=== PATIENT | female | born 1955 | race Caucasian/White ===

== ENCOUNTER 2019-07-25 13:30 | Outpatient (RCR) | payer OTHER, SELFPAY ==
--- NOTE | 2019-03-17 08:09 | HP.PTEVAL_ITS ---
Patient's Visit Information KIMBERLY BERNAL is a 63 year old F referred to Physical Therapy by DOUGLAS SIMMONS with a diagnosis of B knee OA, s/p R TKA 03/13. Date of Evaluation: 03/17/19 Physical Therapist: Constantine Molina, DPT, OCS, CSCS - Visit Plan Frequency: 2-3x /Week Duration: 4-6 Weeks Plan: 2-3x/week for 3-4 weeks for R knee ROM, patellar movements and mobs, strength R and L LE and gait training and progression. Pt to have L TKA on 04/10 and needs to be ready for that. - Subjective Findings: R TKA on 03/13/19, L one to be done in mid March. Years of troube with pain and OA. 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 Work s 40 hrs per week but is off until after her 2nd knee is done. Sleep was rough this weekend as she was up every 4 hours. Pain is 6-8/10 much of time posteriorly R knee.. She takes tylenol. she is doing exercises including QS, HS, SLR with husbands help and AP as wella s icing at home. She uses a walker to get around a kayla. She needs help with her compression stockings and pants. Uses bathroom herself with elevated toilet seat. Has a walk in shower that she will use. Hobbies include taking care of her dog and doing puzzles. Dog is staying with relative right now. - Pain R knee Pain Intensity (Out of 10): 6 Pain Intensity Range: 6, 8 - Objective Walks with walker I slow and decent knee flexion R. Trasnfers with UE I and to and fro supine I. R knee AROM -1 to 85 degrees today adn L is 0-115. Patella is stiff on R knee and patient is swollen R LE, - homans, wound dressed appropriately today and is dry and clean. ankles and hip ROM is WNL although hesitant on the right. Stands and marches without AD slow but I, Walks 15 feet without AD hesitantly but with SBA today. SLR with 8 degree lag on R slowly, strength NT at knee, hip R is 4- adn ankle 4+. L 4+ B. - Goals Goal 1:: 0-120 aROM R knee to facilitate steps and functional transfer from floor. Goal Time Frame: 4-6 Weeks Goal 2:: Patient ambulate community without AD Goal Time Frame: 2-4 Weeks Goal 3:: FGA Goal Time Frame: 2-4 Weeks Goal 4:: R knee healthy enough to have L knee replaced mid March. Goal Time Frame: 2-4 Weeks - Rehabilitation Potential Physical Therapy Diagnosis: s/p R TKA 03/13 Rehabilitation Potential: Good - Anticipated Interventions Patient/Client Instruction: Educate patient on: Condition, Plan of Care For the Purpose of:: To decrease pain, To increase ROM, To improve muscle performance and motor function, To increase tolerance to acti vity/condition/position, To improve ability of physical actions for home/community/work/leisure Therapeutic Exercise to Include: Strength training, Flexibilty training, Gait a nd locomotor training, Passive ROM, Active ROM For the Purpose of:: To decrease pain, To increase ROM, To improve muscle performance and motor function, To improve ability of physical actions for home/community/work/leisure, To improve gait and locomotor functions Manual Therapy Techniques to Include: Mobilization For the Purpose of:: To increase ROM Cryotherapy (ice pack, ice massage): Yes For the Purpose of:: To decrease swelling/inflammation Thank you for the opportunity to evaluate your patient. For Medicare and Medicare HMO plans, please review the plan of care and approve it. It will need to be FAXED BACK to us at [phone] for Medicare purposes. For Medicare only, by signing this I certify the plan of care. Please let me know if there are questions or concerns regarding this plan of care. Physician Sign ature: Date:
--- NOTE | 2019-04-07 12:59 | HP.PTREVAL_ITS ---
DOUGLAS SIMMONS, It has been my pleasure to treat KIMBERLY BERNAL over the last 6 visits for B knee OA, s/p R TKA 03/13. Please see the progress note below for an update on the physical therapy plan of care! Subjective: Swelled up. Saw doctor adn may drain it. L knee surgery is . Sore R knee 11/02. Doctor thought everything else looked real good. Feels water logged. Healing OK. Sleep is interrupted as it is uncomfortable at night. Gave oxycodone for night at doctor office. Using cane right now but not at home. Objective/Function: walks slow but with good heel strike adn toe off. Step up with R and one rail slow, descend hesitant with R but gildardo with pain. OVERALL DOING WELL. NOT OVERLY SWOLLEN, FUNCTIONALL USABLE, arom IMPROVING BUT SORENESS HIGHER THAN I LIKE . Plan Plan: wILL HAVE L Knee done adn then return for therapy on both of them next week. Continue plan with R knee and evaluate L if ordered. Goals Goal 1:: 0-120 aROM R knee to facilitate steps and functional transfer from floor. Goal Time Frame: 4-6 Weeks Goal Progress: Progressing Goal 2:: Patient ambulate community without AD Goal Time Frame: 2-4 Weeks Goal Progress: Progressing Goal 3:: 25/30 FGA Goal Time Frame: 2-4 Weeks Goal 4:: R knee healthy enough to have L knee replaced mid March. Goal Time Frame: 2-4 Weeks Goal Progress: Goal Met Anticipated Interventions Patient/Client Instruction: Educate patient on: Condition, Plan of Care For the Purpose of:: To decrease pain, To increase ROM, To improve muscle pe rformance and motor function, To increase tolerance to activity/condition/position, To improve ability of physical actions for home/community/work/leisure Therapeutic Exercise to Include: Strength training, Flexibilty training, Gait and locomotor training, Passive ROM, Active ROM For the Purpose of:: To decrease pain, To increase ROM, To improve muscle performance and motor function, To improve ability of physical actions for home/community/work/leisure, To improve gait and locomotor functions Manual Therapy Techniques to Include: Mobilization For the Purpose of:: To increase ROM Cryotherapy (ice pack, ice massage): Yes For the Purpose of:: To decrease swelling/inflammation Please do not hesitate to contact me at [phone] by phone or if you have questions or concerns regarding this new plan of care! Sincerely, Constantine Molina, DPT, OCS, CSCS
--- NOTE | 2019-04-14 10:54 | HP.PTREVAL ---
DOUGLAS SIMMONS, It has been my pleasure to treat KIMBERLY BERNAL over the last 7 visits for L knee TKA 04/10, s/p R TKA 03/13. Please see the progress note below for an update on the physical therapy plan of care! Subjective: L knee replaced last 04/10/19. Drained R knee and it feels better. 8/10 over the weekend anterior L knee. R 5/10 at times, did not hurt at rest. Worked it well over the weekend. Did HS with L and R , tried to lift L but could not. Objective/Function: L knee AROM 0-82, SLR is barely able with slow function adn pain. R SLR is able and AROM 0-92 at first but 0-107 after stretching. Walking WBAT L with wha walker mod I today. Trnasfers to and fro supine adn stand I using UE to cradle L upper leg to help it move. Incision is appropriately dressed on L and patella mod stiff and swelling is present but moderate. _ homans B. R incision healed well but much scar tissue distally vs proximally. Stadn without UE I. Step up with R slowly but able, not attmpeted with L. OVERALL DOING WELL AFTER RECENT L TKA. NEW GOALS AND POC SET FOR B KNEES ADN FAIR PROGNOSIS. Plan Plan: 2X/WEEK(PT CHOICE) FOR 4 WEEKS FOR... 1. l TKA post operative management with aptella mobs, knee ROM, swellling and scar STM/management and gait and strengthening. 2. To tolerance, can do strength and ROM R knee immecdiately even WB. ice as needed. Goals Goal 1:: 0-120 aROM R knee to facilitate steps and functional transfer from floor. Goal Time Frame: 4-6 Weeks Goal Progress: Progressing Goal 2:: Patient ambulate community without AD Goal Time Frame: 4-6 Weeks Goal Progress: Progressing, approp again Goal 3:: 25/ FGA Goal Time Frame: 4-6 Weeks Goal Progress: approp. Goal 4:: 0-120 L knee aROM to facilitate steps Goal Time Frame: 2-4 Weeks Goal Progress: NEW GOAL Goal 5:: Ambulate steps and community distances normally without pain. Goal Time Frame: 4-6 Weeks Goal Progress: NEW GOAL Goal 6:: Pt feel I in management of knee recovery with exercises and activities back to 80% normal. Goal Time Frame: 4-6 Weeks Goal Progress: NEW GOAL Anticipated Interventions Patient/Client Instruction: Educate patient on: Condition, Plan of Care For the Purpose of:: To decrease pain, To increase ROM, To improve muscle performance and motor function, To increase tolerance to activity/condition/position, To improve ability of physical actions for home/community/work/leisure Therapeutic Exercise to Include: Strength training, Flexibilty training, Gait and locomotor training, Passive ROM, Active ROM For the Purpose of:: To decrease pain, To increase ROM, To improve muscle performance and motor function, To improve ability of physical actions for home/community/work/leisure, To improve gait and locomotor functions Manual Therapy Techniques to Include: Mobilization For the Purpose of:: To increase ROM Cryotherapy (ice pack, ice massage): Yes For the Purpose of:: To decrease swelling/inflammation Please do not hesitate to contact me at [phone] by phone or if you have questions or concerns regarding this new plan of care! Sincerely, Constantine Molina, DPT, OCS, CSCS
--- NOTE | 2019-05-13 18:51 | HP.PTREVAL_ITS ---
DOUGLAS SIMMONS, It has been my pleasure to treat KIMBERLY BERNAL over the last 15 visits for L knee TKA 04/10, s/p R TKA 03/13. Please see the progress note below for an update on the physical therapy plan of care! Subjective: Doing all right, Im just so sore all the time. Objective/Function: Upon further exploration, pt is mostly sore if she overdoes it or when she is bending it. Pt is painfree at rest. AROM L knee 0-110 and R knee 0-120 after stretching today. Walsk with cane I, stiff ambulation at times but can do good toe off adn knee flexion with cues. Steps are reciprocal with one rail up and down today, some L knee soreness descending. Trasnfer table and chair I. SLR without lag B. OVERALL PT DOING EXCELLENT TODAY DESPITE FEELING SORE ALL THE TIME i ENCOURAGED HER HOW WELL SHE WAS DOING AND GAVE TIMELINE ON SORENESS AND SWELLING. Plan Plan: CONTINUE 2-4 WEEKS FOR STRENGTHENING IN GYM AND FUNCTIONALLY AND MANUAL NEEDED TO CONTINUE KNEE ROM IMPROVEMENT. Goals Goal 1:: 0-120 aROM R knee to facilitate steps and functional transfer from floor. Goal Time Frame: 4-6 Weeks Goal Progress: R not L. approp. Goal 2:: Patient ambulate community without AD Goal Time Frame: 4-6 Weeks Goal Progress: cane currently, approp Goal 3:: 25/30 FGA Goal Time Frame: 4-6 Weeks Goal Progress: approp. Goal 4:: 0-120 L knee aROM to facilitate steps Goal Time Frame: 2-4 Weeks Goal Progress: Progressing Goal 5:: Ambulate steps and community distances normally without pain. Goal Time Frame: 4-6 Weeks Goal Progress: Progressing Goal 6:: Pt feel I in management of knee recovery with exercises and activities back to 80% normal. Goal Time Frame: 4-6 Weeks Goal Progress: Progressing Anticipated Interventions Patient/Client Instruction: Educate patient on: Condition, Plan of Care For the Purpose of:: To decrease pain, To increase ROM, To improve muscle performance and motor function, To increase tolerance to activity/condition/position, To improve ability of physical actions for home/community/work/leisure Therapeutic Exercise to Include: Strength training, Flexibilty training, Gait and locomotor training, Passive ROM, Active ROM For the Purpose of:: To decrease pain, To increase ROM, To improve muscle performance and motor function, To improve ability of physical actions for h ome/community/work/leisure, To improve gait and locomotor functions Manual Therapy Techniques to Include: Mobilization For the Purpose of:: To increase ROM Cryotherapy (ice pack, ice massage): Yes For the Purpose of:: To decrease swelling/inflammation Please do not hesitate to contact me at [phone] by phone or if you have questions or concerns regarding this new plan of care! Sincerely, Constantine Molina, DPT, OCS, CSCS
--- NOTE | 2019-06-19 17:18 | HP.PTREVAL_ITS ---
DOUGLAS SIMMONS, It has been my pleasure to treat KIMBERLY BERNAL over the last 25 visits for L knee TKA 04/10, s/p R TKA 03/13. Please see the progress note below for an update on the physical therapy plan of care! Subjective: Sat around in car a lot n Sunday and was stiff and sore Sunday. Otherwise was pretty good over the weekend. Sleeping OK. Wants to be released to work standing all day July 24. To doctor next week. Wants more therapy as it is not overly comfortable and she needs to return to work in a month. Objective/Function: L knee 0-116, 0 ext lag with SLR. R knee 0-118 with 2 degree ext lag. 4/5 ext adn flexion hip, 4+ abduction. knee ext/flexion strength is 4/5 flexion B and R 4- quad and L 4 quad. Pt is tnetaive to startbending it but pretty comfortable outside of end range of flexion. A little stiff with ambulation but good gait pattern once she gets going. Hesitant to descend steps with either leg, slow to bend. Can do reciprocal but needs one rail for safety. Patella stiff on R to distal movement moderately adn minmally on L. Scar tissue only very slightly palpable R>L at proximal incisio n. No signs of redness heat or swelling. OVERALL PROGRESSING SLOWLY BUT NICELY. PT FRUSTRATED WITH STIFF FEELING BUT ALWAYS FEELS BETTER AFTER THERAPY. APPROPRIATE TO CONTINUE 3X/WEEK FOR 3 WEEKS WITH FAIR PROGNOSIS. Plan Plan: 3x/week for 3 weeks...please continue patellar mobs and quad rollout adn quad stretch. Monitor ROM. Pt can do machine based strengthening in gym on her own once I prior to session and will come early to do so once we give her a list after ensuring safety. Then we can progress to more aggressive functional strength of quad and HS adn hip muscles including steps and functional walking and balance to progress back to work. Goals Goal 1:: 0-120 aROM R knee to facilitate steps and functional transfer from floor. Goal Time Frame: 2-4 Weeks Goal Progress: Progressing, approp Goal 2:: Pt feel ready to attempt return to work. Goal Time Frame: 2-4 Weeks Goal Progress: NEW GOAL Goal 3:: 25 FGA Goal Time Frame: 4-6 Weeks Goal Progress: approp. Goal 4:: 0-120 L knee aROM to facilitate steps Goal Time Frame: 2-4 Weeks Goal Progress: Progressing, approp Goal 5:: Ambulate steps and community distances normally without pain. Goal Time Frame: 4-6 Weeks Goal Progress: slow, hesitant, approp! Goal 6:: Pt feel I in management of knee recovery with exercises and activities back to 80% normal. Goal Time Frame: 4-6 Weeks Goal Progress: Progressing Anticipated Interventions Patient/Client Instruction: Educate patient on: Condition, Plan of Care For the Purpose of:: To decrease pain, To increase ROM, To improve muscle performance and motor function, To increase tolerance to activity/condition/p osition, To improve ability of physical actions for home/community/work/leisure Therapeutic Exercise to Include: Strength training, Flexibilty training, Gait and locomotor training, Passive ROM, Active ROM For the Purpose of:: To decrease pain, To increase ROM, To improve muscle performance and motor function, To improve ability of physical actions for home/community/work/leisure, To improve gait and locomotor functions Manual Therapy Techniques to Include: Mobilization For the Purpose of:: To increase ROM Cryotherapy (ice pack, ice massage): Yes For the Purpose of:: To decrease swelling/inflammation Please do not hesitate to contact me at [phone] by phone or if you have questions or concerns regarding this new plan of care! Sincerely, Constantine Molina, DPT, OCS, CSCS
--- NOTE | 2019-07-18 12:34 | HP.PTREVAL_ITS ---
DOUGLAS SIMMONS, It has been my pleasure to treat KIMBERLY BERNAL over the last 35 visits for L knee TKA 04/10, s/p R TKA 03/13. Please see the progress note below for an update on the physical therapy plan of care! Subjective: R knee continues to be a frustrating problem. Sore anteriorly and laterally most of time. 3/10 at rest adn 5/10 with stadning from chair. L one also somewhat painful with WB stance from chair. Sleep is OK. Will return to work on Sunday 6-8 hour shifts. Wants to get out of chair without using UE, otherwise activities are pretty good. Objective/Function: AROM 0-115 B knees today. PROM L knee 0-120 and 0-118 on R knee. walks well although feels stiff and sore. Steps reciprocal up without UE, descending slightly weak and need one rail. Patella moving well B. Feels like palpable scar tissue proximal to B knee caps near tender, sore area. Strength is 4+ in HSC B and 4 in ext L and 4+ R with some soreness with contraction. Exits chair without UE but sore on R. Plan Plan: Tria of pool therapy to help with soreness as patient returns to work next weeka dn then recheck with therapist for likely d/c or continue water if overly helpful. 3x in water. Please work on pain, ROM, quad stretching, and function. Questionabe prognosis with pain. Goals Goal 1:: 0-120 aROM R knee to facilitate steps and functional transfer from floor. Goal Time Frame: 4-6 Weeks Goal Progress: PROM, not AROM. Goal 2:: Patient ambulate community without AD Goal Time Frame: 4-6 Weeks Goal Progress: Goal Met Goal 3:: 25 FGA Goal Time Frame: 4-6 Weeks Goal Progress: approp. Goal 4:: 0-120 L knee aROM to facilitate steps Goal Time Frame: 2-4 Weeks Goal Progress: steps are OK except pain Goal 5:: Ambulate steps and community distances normally without pain. Goal Time Frame: 4-6 Weeks Goal Progress: still sore Goal 6:: Pt feel I in management of knee recovery with exercises and activities back to 80% normal. Goal Time Frame: 4-6 Weeks Goal Progress: Goal Met Anticipated Interventions Patient/Client Instruction: Educate patient on: Condition, Plan of Care For the Purpose of:: To decrease pain, To increase ROM, To improve muscle p erformance and motor function, To increase tolerance to activity/condition/position, To improve ability of physical actions for home/community/work/leisure Therapeutic Exercise to Include: Strength training, Flexibilty training, Gait and locomotor training, Passive ROM, Active ROM For the Purpose of:: To decrease pain, To increase ROM, To improve muscle performance and motor function, To improve ability of physical actions for home/community/work/leisure, To improve gait and locomotor functions Manual Therapy Techniques to Include: Mobilization For the Purpose of:: To increase ROM Cryotherapy (ice pack, ice massage): Yes For the Purpose of:: To decrease swelling/inflammation Please do not hesitate to contact me at [phone] by phone or if you have questions or concerns regarding this new plan of care! Sincerely, Constantine Molina, DPT, OCS, CSCS
--- NOTE | 2019-07-25 14:49 | HP.PTREVAL_ITS ---
DOUGLAS SIMMONS, It has been my pleasure to treat KIMBERLY BERNAL over the last 37 visits for L knee TKA 04/10, s/p R TKA 03/13. Please see the progress note below for an update on the physical therapy plan of care! Subjective: R knee continues to be sore. Nurse at doctor office said she may have fluid in there. Will see doctor in August. Pain in R knee is 1-8/10. * /10 after work yesterday after ebing on it and then driving home for an hour. Needed to lie down and have it stretched at home and massage and that helped. Walking well. L knee is 2/10 and not as bad as R but still a little numb. Sleep is pretty good. Activities at home are close to normal. Objective/Function: L knee 0-120 and L 0-115. Walks slow but normal giat, steps reciprocal without railing if needed. 0 lag with SLR B. strength is 4/5 knee flexion and ext with some soreness R ext. Patellas are moving well and incisions healed well with very little palpable scar tissue. Getting up from low chair without EU still challenging adn stiff. OVERALL DOING EXCELLENT WITH ALL ASPECTS EXCEPT SORENESS COMBNED WITH RETURN TO WORK. SEE PLAN , FAIR [place] OGNOSIS Plan Plan: 2X/WEEK FOR 3-4 WEEKS FOR CONTINUE WATER THERAPY TO HELP TRASNITION BACK TO WORK SORENESS. Goal to ease soreness to less than 2/10 with work Goals Goal 1:: 0-120 aROM R knee to facilitate steps and functional transfer from floor. Goal Time Frame: 4-6 Weeks Goal Progress: L, not R, but close Goal 2:: Patient ambulate community without AD Goal Time Frame: 4-6 Weeks Goal Progress: Goal Met Goal 3:: 25/30 FGA Goal Time Frame: 4-6 Weeks Goal Progress: Goal Met Goal 4:: 0-120 L knee aROM to facilitate steps Goal Time Frame: 2-4 Weeks Goal Progress: L, not R Goal 5:: Ambulate steps and community distances normally without pain. Goal Time Frame: 4-6 Weeks Goal Progress: Soreness persists, approp Goal 6:: Pt feel I in management of knee recovery with exercises and activities back to 80% normal. Goal Time Frame: 4-6 Weeks Goal Progress: Goal Met Anticipated Interventions Patient/Client Instruction: Educate patient on: Condition, Plan of Care For the Purpose of:: To decrease pain, To increase ROM, To improve muscle performance and motor function, To increase tolerance to activity/condition/position, To improve ability of physical actions for home/community/work/leisure Therapeutic Exercise to Include: Strength training, Flexibilty training, Gait and locomotor training, In an aquatic setting, Passive ROM, Active ROM For the Purpose of:: To decrease pain, To increase ROM, To improve muscle performance and motor function, To improve ability of physical actions for home/community/work/leisure, To improve gait and locomotor functions Manual Therapy Techniques to Include: Mobilization For the Purpose of:: To increase ROM Cryotherapy (ice pack, ice massage): Yes For the Purpose of:: To decrease swelling/inflammation Please do not hesitate to contact me at [phone] by phone or if you have questions or concerns regarding this new plan of care! Sincerely, Constantine Molina, DPT, OCS, CSCS
--- NOTE | 2019-08-14 11:44 | HP.PT.NRP ---
KIMBERLY BERNAL was seen in my office for initial evaluation on 03/17/19. The following Plan of Care was established for this patient: Initial Frequency: 2-3x /Week Initial Duration: 4-6 Weeks Patient/Client Instruction: Educate patient on: Condition, Plan of Care For the Purpose of:: To decrease pain, To increase ROM, To improve muscle performance and motor function, To increase tolerance to activity/condition/position, To improve ability of physical actions for home/community/work/leisure Therapeutic Exercise to Include: Strength training, Flexibilty training, Gait and locomotor training, In an aquatic setting, Passive ROM, Active ROM For the Purpose of:: To decrease pain, To increase ROM, To improve muscle performance and motor function, To improve ability of physical actions for home/community/work/leisure, To improve gait and locomotor functions Manual Therapy Techniques to Include: Mobilization For the Purpose of:: To increase ROM Cryotherapy (ice pack, ice massage): Yes For the Purpose of:: To decrease swelling/inflammation This patient was last seen in our office 07/25/19. Pertinent comments regarding their Physical therapy will appear below: Pt seen 37 visits for her B TKAs. She came along nicely functionally but had recurring problems with soreness and pain. She has returned to work and cancelled or no showed for the last couple visits including her latest. I will discontinue her as it has been 3 weeks since last attended visit. At this point I will be discontinuing this patient from physical therapy. I would be happy to see this patient again in the future if found appropriate by the physician. Thank you! Constantine Molina, DPT, OCS, CSCS
== END 2019-07-25 19:00 | disposition home or self-care (01) ==
LOC: PT 13:30
DX: M17.0 Bilateral primary osteoarthritis of knee (principal); Z96.653 Presence of artificial knee joint, bilateral; M79.89 Other specified soft tissue disorders; G89.18 Other acute postprocedural pain
CPT/HCPCS: 97014; 97110; 97113; 97140; 97162; 97164; 97530; G0283